=== PATIENT | male | born 1955 | race Caucasian/White ===

== ENCOUNTER 2022-05-15 10:44 | Emergency (ER) | payer MEDICARE, OTHER ==
[~2022-05-15] VITALS: Ht 188 cm; Wt 129.0 kg
[2022-05-15] MEDS ORDERED: SODIUM CHLORIDE 0.9% 1,000 ML IV ONE (13:30)
[2022-05-15] MEDS ORDERED: SODIUM CHLORIDE 0.9% 500 ML IVB ONE (13:30)
[2022-05-15 14:14] LABS: Urine Bacteria NONE SEEN /hpf (None Seen); Urine Blood Negative /uL (Negative); Urine Mucus FEW (None Seen); Urine Specific Gravity 1.012 (1.001-1.035); Urine WBC <1 /hpf (0 - 3)
[2022-05-15 14:21] LABS: Basophils # (auto) 0.1 10 ^3/uL (0-0.2); Eosinophils # (auto) 0.1 10 ^3/uL (0-0.8); Monocytes # (auto) 0.8 10 ^3/uL (0-1.3)
[2022-05-15 14:22] LABS: Basophils % (auto) 0.6 % (0.0-2.0); Eosinophils % (auto) 0.4 % (0.0-7.0); Hematocrit 50.7 % (41.0-53.0); Hemoglobin 16.6 g/dL (13.5-17.5); Lymphocytes # (auto) 1.7 10 ^3/uL (0.4-5.4); Lymphocytes % (auto) 12.6 % (10.0-50.0); Mean Corpuscular Hgb Conc. 32.6 g/dL (32.0-36.0); Mean Corpuscular Volume 85.8 fL (80.0-100.0); Monocytes % (auto) 5.9 % (0.0-12.0); Neutrophils # (auto) 10.9 10 ^3/uL (1.6-8.6); Neutrophils % (auto) 80.5 % (37.0-80.0); Red Blood Cells 5.91 10^6/uL (4.5-5.90); Red Cell Distribution Width 15.6 % (11.8-14.3); White Blood Cell 13.6 10^3/uL (4.4-10.8)
[2022-05-15 14:37] LABS: Albumin 3.8 g/dL (3.4-5.0); Calcium 8.9 mg/dL (8.5-10.1); Magnesium 2.7 mg/dL (1.6-2.6); Potassium 4.4 mmol/L (3.5-5.1)
[2022-05-15 14:42] LABS: BUN/Creatinine Ratio 12.8; Total Protein 6.9 g/dL (6.4-8.2)
[2022-05-15] MEDS ORDERED: IOHEXOL 300 MG/ML 100ML BOTTLE IJ ONE (15:13)
[2022-05-15] MEDS ORDERED: METO-281 PO (17:07)
[2022-05-15] MEDS ORDERED: NAP500T PO (17:07)
[2022-05-15] MEDS ORDERED: BISM262C44 PO (17:07)
[2022-05-15] MEDS ORDERED: TRAM50TA2 PO (17:07)
[2022-05-15 17:18] VITALS: BP 110/69
== END 2022-05-15 17:37 | disposition home or self-care (01) ==
LOC: ER 10:44
DX: K52.9 Noninfective gastroenteritis and colitis, unspecified (principal); M47.816 Spondylosis without myelopathy or radiculopathy, lumbar region; K86.2 Cyst of pancreas; E66.9 Obesity, unspecified; R07.89 Other chest pain; I11.0 Hypertensive heart disease with heart failure; I50.9 Heart failure, unspecified; E78.5 Hyperlipidemia, unspecified; Z68.35 Body mass index [BMI] 35.0-35.9, adult; Z90.49 Acquired absence of other specified parts of digestive tract; Z95.0 Presence of cardiac pacemaker; Z79.899 Other long term (current) drug therapy
CPT/HCPCS: 36415; 71046; 74177; 80053; 81001; 83690; 83735; 85025; 99285; Q9967

== ENCOUNTER 2022-09-09 18:56 | Emergency (ER) | payer MEDICARE, OTHER ==
[~2022-09-09] VITALS: Ht 188 cm; Wt 123.0 kg
[~2022-09-09 18:56] MED LIST: BISM262C44 PO; METO-281 PO; NAP500T PO; TRAM50TA2 PO
[2022-09-09 21:17] LABS: Basophils # (auto) 0 10 ^3/uL (0-0.2); Basophils % (auto) 0.7 % (0.0-2.0); Eosinophils # (auto) 0.1 10 ^3/uL (0-0.8); Eosinophils % (auto) 1.6 % (0.0-7.0); Hematocrit 38.2 % (41.0-53.0); Hemoglobin 12.7 g/dL (13.5-17.5); Lymphocytes # (auto) 0.8 10 ^3/uL (0.4-5.4); Lymphocytes % (auto) 11.1 % (10.0-50.0); Mean Corpuscular Hgb Conc. 33.3 g/dL (32.0-36.0); Mean Corpuscular Volume 87.1 fL (80.0-100.0); Monocytes # (auto) 0.6 10 ^3/uL (0-1.3); Monocytes % (auto) 8.1 % (0.0-12.0); Neutrophils # (auto) 5.4 10 ^3/uL (1.6-8.6); Neutrophils % (auto) 78.5 % (37.0-80.0); Nucleated Red Blood Cells % 0.1 %; Red Blood Cells 4.39 10^6/uL (4.5-5.90); Red Cell Distribution Width 14.5 % (11.8-14.3); White Blood Cell 6.9 10^3/uL (4.4-10.8)
[2022-09-09 21:30] LABS: Albumin 3.2 g/dL (3.4-5.0); BUN/Creatinine Ratio 10.5; Calcium 9.1 mg/dL (8.5-10.1)
[2022-09-09 21:33] LABS: Bilirubin, Total 1.2 mg/dL (0.2-1.0); Total Protein 6.1 g/dL (6.4-8.2)
[2022-09-09 21:37] LABS: INR 1.06 (0.9-1.15)
[2022-09-09] MEDS ORDERED: ceFAZolin 1GM/50ML 50 ML IV ONE (23:30)
[2022-09-10] MEDS ORDERED: IOHEXOL 350 MG/ML 100ML IJ ONE (00:21)
[2022-09-10 01:25] VITALS: BP 142/54
[2022-09-10] MEDS ORDERED: CEPH-510 PO (02:21)
== END 2022-09-10 02:07 | disposition left against medical advice (07) ==
LOC: ER 18:56
DX: L03.115 Cellulitis of right lower limb (principal); F41.9 Anxiety disorder, unspecified; G89.18 Other acute postprocedural pain; T81.40XA Infection following a procedure, unspecified, initial encounter; I50.9 Heart failure, unspecified; E78.5 Hyperlipidemia, unspecified; F17.220 Nicotine dependence, chewing tobacco, uncomplicated; I10 Essential (primary) hypertension; Z90.49 Acquired absence of other specified parts of digestive tract; Z98.890 Other specified postprocedural states; Z79.899 Other long term (current) drug therapy
CPT/HCPCS: 36415; 71045; 71275; 80053; 83605; 83880; 84484; 85025; 85379; 85610; 85730; 87040; 93005; 93971; 96365; 99285; J0690; Q9967

== ENCOUNTER 2022-10-13 08:17 | Inpatient (IN) | payer MEDICARE, OTHER ==
[~2022-10-13] VITALS: Ht 188 cm; Wt 125.0 kg
[~2022-10-13 08:17] MED LIST changes: +CEPH-510 PO
[2022-10-13 08:47] LABS: Basophils # (auto) 0 10 ^3/uL (0-0.2); Basophils % (auto) 0.8 % (0.0-2.0); Eosinophils # (auto) 0.1 10 ^3/uL (0-0.8); Eosinophils % (auto) 1.2 % (0.0-7.0); Hematocrit 44.4 % (41.0-53.0); Hemoglobin 14.8 g/dL (13.5-17.5); Lymphocytes # (auto) 0.9 10 ^3/uL (0.4-5.4); Lymphocytes % (auto) 17.8 % (10.0-50.0); Mean Corpuscular Hemoglobin 28.6 pg (28.0-32.0); Mean Corpuscular Hgb Conc. 33.3 g/dL (32.0-36.0); Monocytes # (auto) 0.5 10 ^3/uL (0-1.3); Monocytes % (auto) 9.1 % (0.0-12.0); Neutrophils # (auto) 3.6 10 ^3/uL (1.6-8.6); Neutrophils % (auto) 71.1 % (37.0-80.0); Nucleated Red Blood Cells % 0.1 %; Red Blood Cells 5.16 10^6/uL (4.5-5.90); Red Cell Distribution Width 15.1 % (11.8-14.3); White Blood Cell 5.1 10^3/uL (4.4-10.8)
[2022-10-13 09:01] LABS: Albumin 3.8 g/dL (3.4-5.0); Calcium 8.6 mg/dL (8.5-10.1); Potassium 3.7 mmol/L (3.5-5.1)
[2022-10-13 09:06] LABS: BUN/Creatinine Ratio 14.6; Bilirubin, Total 0.7 mg/dL (0.2-1.0); Total Protein 6.5 g/dL (6.4-8.2)
[2022-10-13 12:04] LABS: Urine Bacteria NONE SEEN /hpf (None Seen); Urine Blood Negative /uL (Negative); Urine Mucus FEW (None Seen); Urine Specific Gravity 1.015 (1.001-1.035); Urine WBC <1 /hpf (0 - 3)
[2022-10-13] MEDS ORDERED: NITROGLYCERIN 0.4 MG SL TAB SL PRN (14:00)
[2022-10-13] MEDS ORDERED: MORPHINE SULFATE INJ 2 MG/ml SYRG IV PRN (14:00)
[2022-10-13] MEDS ORDERED: ACETAMINOPHEN 325 MG TAB PO PRN (14:00)
[2022-10-13] MEDS ORDERED: PANTOPRAZOLE 40 MG/10 ML VIAL INJ IV ONE (14:15)
[2022-10-13 14:22] LABS: Cholesterol 205 mg/dL (< 200); Triglycerides 236 mg/dL (< 150)
[2022-10-13 14:26] LABS: HDL Cholesterol 23 mg/dL (40-59); LDL Cholesterol 145 mg/dL (< 100)
[2022-10-14 06:28] LABS: Basophils # (auto) 0 10 ^3/uL (0-0.2); Basophils % (auto) 0.8 % (0.0-2.0); Eosinophils # (auto) 0.1 10 ^3/uL (0-0.8); Eosinophils % (auto) 1.3 % (0.0-7.0); Hematocrit 40.6 % (41.0-53.0); Hemoglobin 13.2 g/dL (13.5-17.5); Lymphocytes # (auto) 1.1 10 ^3/uL (0.4-5.4); Lymphocytes % (auto) 21.3 % (10.0-50.0); Mean Corpuscular Hgb Conc. 32.5 g/dL (32.0-36.0); Mean Corpuscular Volume 86.4 fL (80.0-100.0); Monocytes # (auto) 0.5 10 ^3/uL (0-1.3); Monocytes % (auto) 8.6 % (0.0-12.0); Neutrophils # (auto) 3.6 10 ^3/uL (1.6-8.6); Nucleated Red Blood Cells % 0.1 %; Red Cell Distribution Width 15.3 % (11.8-14.3); White Blood Cell 5.3 10^3/uL (4.4-10.8)
[2022-10-14 06:43] LABS: Potassium 3.6 mmol/L (3.5-5.1)
[2022-10-14 07:00] LABS: Albumin 3.3 g/dL (3.4-5.0); BUN/Creatinine Ratio 16.9; Bilirubin, Total 0.7 mg/dL (0.2-1.0); Calcium 8.4 mg/dL (8.5-10.1); Total Protein 5.9 g/dL (6.4-8.2)
[2022-10-14 09:00] VITALS: BP 136/65
[2022-10-14] MEDS ORDERED: ENOXAPARIN SOD 40 MG/0.4 ML SYRINGE SC SCH (10:00)
[2022-10-14] MEDS ORDERED: ZOLPIDEM TARTRATE 5 MG TAB PO PRN (10:15)
[2022-10-14 11:44] VITALS: BP 136/65
[2022-10-14] MEDS: PANTOPRAZOLE 40 MG/10 ML VIAL INJ IV SCH (11:54)
[2022-10-14] MEDS ORDERED: SACU1TAB4 PO (12:09)
[2022-10-14] MEDS ORDERED: HYDR-4798 PO (12:09)
[2022-10-14] MEDS ORDERED: MET50T GT (12:09)
[2022-10-14] MEDS ORDERED: POTA10TA51 PO (12:09)
[2022-10-14] MEDS ORDERED: APIX5TAB PO (12:09)
[2022-10-14] MEDS ORDERED: AMIO200T33 PO (12:09)
[2022-10-14] MEDS ORDERED: TAMS0.4C36 PO (12:09)
[2022-10-14] MEDS ORDERED: FURO40TA4 PO (12:09)
[2022-10-14] MEDS: HYDROcodone-ACET 10/325MG TAB PO PRN ×2 (14:56→22:18)
[2022-10-14 17:00] VITALS: BP 133/52
[2022-10-14] MEDS: FUROSEMIDE 20 MG TAB PO SCH (18:55)
[2022-10-14 22:00] VITALS: BP 133/71
[2022-10-14] MEDS ORDERED: SACUBITRIL-VALSARTAN 24mg/26mg TAB PO SCH (22:00)
[2022-10-14] MEDS: DOCUSATE SOD 100 MG CAP PO SCH (22:17)
[2022-10-14] MEDS: APIXABAN 5 MG TAB PO SCH (22:18)
[2022-10-14] MEDS: ENTRESTO PO SCH (22:27)
[2022-10-15 05:00] VITALS: BP_SYST 123; BP_SYST 132; BP_SYST 140; BP_DIAS 65; BP_DIAS 67
[2022-10-15] MEDS: FUROSEMIDE 20 MG TAB PO SCH (06:22)
[2022-10-15 09:00] VITALS: BP 120/65
[2022-10-15] MEDS ORDERED: AMIODARONE HCL 200 MG TAB PO SCH (10:00)
[2022-10-15] MEDS ORDERED: POTASSIUM CHL 20 Meq TABLET PO SCH (10:00)
[2022-10-15] MEDS: ENTRESTO PO SCH (10:08)
[2022-10-15] MEDS: PANTOPRAZOLE 40 MG/10 ML VIAL INJ IV SCH (10:08)
[2022-10-15] MEDS: DOCUSATE SOD 100 MG CAP PO SCH (10:09)
[2022-10-15] MEDS: APIXABAN 5 MG TAB PO SCH (10:09)
[2022-10-15] MEDS: HYDROcodone-ACET 10/325MG TAB PO PRN (10:20)
[2022-10-15 13:00] VITALS: BP 135/60
[2022-10-15 16:40] VITALS: BP 135/60
[2022-10-15] MEDS ORDERED: FUROSEMIDE 40 MG TAB PO SCH (18:00)
== END 2022-10-15 17:41 | disposition home or self-care (01) | DRG 309 ==
LOC: EDBD 08:17 → ER 08:17 → TELE 13:54 → TELE-CENTR 10-14 07:32
PROVIDERS: ADMIT Nurse Practitioner Family; ATTEND Internal Medicine Geriatric Medicine
DX: I49.5 Sick sinus syndrome (principal); D68.59 Other primary thrombophilia; I48.20 Chronic atrial fibrillation, unspecified; Z20.822 Contact with and (suspected) exposure to COVID-19; E66.01 Morbid (severe) obesity due to excess calories; Z68.35 Body mass index [BMI] 35.0-35.9, adult; E78.5 Hyperlipidemia, unspecified; E87.6 Hypokalemia; F17.200 Nicotine dependence, unspecified, uncomplicated; H81.10 Benign paroxysmal vertigo, unspecified ear; I11.0 Hypertensive heart disease with heart failure; I50.9 Heart failure, unspecified; Z83.3 Family history of diabetes mellitus; Z86.711 Personal history of pulmonary embolism; Z95.0 Presence of cardiac pacemaker
CPT/HCPCS: 36415; 70450; 71045; 80053; 80061; 81001; 83036; 84443; 84484; 85025; 87426; 93005; 93886; 95819; 96374; C9113; G0378

== ENCOUNTER 2023-02-11 11:15 | Emergency (ER) | payer MEDICARE, OTHER ==
[~2023-02-11] VITALS: Ht 188 cm; Wt 108.2 kg
[~2023-02-11 11:15] MED LIST changes: +AMIO200T33 PO; +APIX5TAB PO; +FURO40TA4 PO; +HYDR-4798 PO; +MET50T GT; +POTA10TA51 PO; +SACU1TAB4 PO; +TAMS0.4C36 PO
[2023-02-11 11:41] VITALS: BP 114/59
[2023-02-11 12:31] LABS: Urine Bacteria NONE SEEN /hpf (None Seen); Urine Blood Negative /uL (Negative); Urine Mucus FEW (None Seen); Urine Specific Gravity 1.018 (1.001-1.035); Urine WBC <1 /hpf (0 - 3)
[2023-02-11 12:54] LABS: Basophils # (auto) 0.1 10 ^3/uL (0-0.2); Basophils % (auto) 0.8 % (0.0-2.0); Eosinophils # (auto) 0 10 ^3/uL (0-0.8); Eosinophils % (auto) 0.5 % (0.0-7.0); Hematocrit 44.2 % (41.0-53.0); Hemoglobin 14.9 g/dL (13.5-17.5); Lymphocytes # (auto) 1.1 10 ^3/uL (0.4-5.4); Lymphocytes % (auto) 15.9 % (10.0-50.0); Mean Corpuscular Hemoglobin 29.5 pg (28.0-32.0); Mean Corpuscular Hgb Conc. 33.8 g/dL (32.0-36.0); Mean Corpuscular Volume 87.3 fL (80.0-100.0); Monocytes # (auto) 0.5 10 ^3/uL (0-1.3); Monocytes % (auto) 7.9 % (0.0-12.0); Neutrophils % (auto) 74.9 % (37.0-80.0); Nucleated Red Blood Cells % 0.1 %; Red Blood Cells 5.06 10^6/uL (4.5-5.90); Red Cell Distribution Width 16.1 % (11.8-14.3); White Blood Cell 6.7 10^3/uL (4.4-10.8)
[2023-02-11 13:08] LABS: Calcium 9.1 mg/dL (8.5-10.1); Potassium 3.9 mmol/L (3.5-5.1)
[2023-02-11 13:11] LABS: Bilirubin, Total 0.8 mg/dL (0.2-1.0); Total Protein 6.8 g/dL (6.4-8.2)
[2023-02-11] MEDS ORDERED: HYDROcodone-ACET 10/325MG TAB PO ONE (14:00)
[2023-02-11] MEDS ORDERED: DICY10CA PO (14:31)
[2023-02-11] MEDS ORDERED: LACT10SO70 PO (14:31)
== END 2023-02-11 14:33 | disposition home or self-care (01) ==
LOC: ER 11:15
DX: K59.00 Constipation, unspecified (principal); K86.2 Cyst of pancreas; R91.1 Solitary pulmonary nodule; F17.220 Nicotine dependence, chewing tobacco, uncomplicated; I11.0 Hypertensive heart disease with heart failure; I50.9 Heart failure, unspecified; E78.5 Hyperlipidemia, unspecified; Z86.711 Personal history of pulmonary embolism; Z90.89 Acquired absence of other organs; Z95.0 Presence of cardiac pacemaker
CPT/HCPCS: 36415; 74176; 80053; 81001; 83605; 83690; 83880; 85025

== ENCOUNTER 2024-03-22 17:34 | Inpatient (IN) | payer BC, MEDICARE, OTHER ==
[~2024-03-22] VITALS: Ht 182.9 cm; Wt 114.0 kg
[~2024-03-22 17:34] MED LIST changes: +CEPH250C PO; +DICY10CA PO; +LACT10SO70 PO; +METO-158 PO; +POTA-36 PO; -POTA10TA51 PO; +ROSU20TA14 PO; +ROSU20TA56 PO; +TAMS-35 PO
[2024-03-22 19:11] LABS: Basophils # (auto) 0.1 10 ^3/uL (0-0.2); Eosinophils # (auto) 0.1 10 ^3/uL (0-0.8); Eosinophils % (auto) 0.9 % (0.0-7.0); Hematocrit 47.6 % (41.0-53.0); Lymphocytes # (auto) 1.5 10 ^3/uL (0.4-5.4); Lymphocytes % (auto) 20.6 % (10.0-50.0); Mean Corpuscular Hgb Conc. 33.5 g/dL (32.0-36.0); Mean Corpuscular Volume 89.4 fL (80.0-100.0); Monocytes # (auto) 0.6 10 ^3/uL (0-1.3); Neutrophils # (auto) 5.1 10 ^3/uL (1.6-8.6); Neutrophils % (auto) 69.5 % (37.0-80.0); Nucleated Red Blood Cells % 0.1 %; Red Blood Cells 5.33 10^6/uL (4.5-5.90); White Blood Cell 7.4 10^3/uL (4.4-10.8)
[2024-03-22 19:33] LABS: Alanine Aminotransferase 14 U/L (7-40); Albumin 4.1 g/dL (3.2-4.8); Alkaline Phosphatase 56 U/L (46-116); Anion Gap 4 (5-15); Aspartate Aminotransferase 12 U/L (13-40); BUN/Creatinine Ratio 12.1 (10.0-20.0); Bilirubin, Total 0.4 mg/dL (0.2-1.0); Blood Urea Nitrogen 14 mg/dL (9-23); Calcium 9.2 mg/dL (8.5-10.1); Carbon Dioxide 25 mmol/L (20-30); Chloride 109 mmol/L (98-107); Glucose 105 mg/dL (74-106); Potassium 4.2 mmol/L (3.5-5.1); Sodium 138 mmol/L (136-145); Total Protein 6.3 g/dL (5.7-8.2)
[2024-03-22 20:38] LABS: Urine Bacteria FEW /hpf (None Seen); Urine Blood Negative /uL (Negative); Urine Clarity Clear (Clear); Urine Color Light-Yellow (Yellow); Urine Protein, UAD Negative (Negative); Urine Specific Gravity 1.016 (1.001-1.035); Urine Urobilinogen Normal (Negative); Urine WBC 63 /hpf (0 - 3)
[2024-03-22] MEDS: ERTAPENEM SOD INJ 1 GM in SODIUM CHL 0.9% 50 ML IV ONE (22:36)
[2024-03-22] MEDS: MORPHINE SULFATE 4 MG/ML SYR/VIAL IV ONE (22:58)
[2024-03-22] MEDS: ONDANSETRON HCL 4 MG/2 ML VIAL IV ONE (22:59)
[2024-03-23] MEDS ORDERED: ACETAMINOPHEN 325 MG TAB PO PRN
[2024-03-23] MEDS ORDERED: ONDANSETRON HCL 4 MG/2 ML VIAL IV PRN
[2024-03-23] MEDS ORDERED: NITROGLYCERIN 0.4 MG SL TAB SL PRN
[2024-03-23] MEDS ORDERED: MORPHINE SULFATE INJ 2 MG/ml SYRG IV PRN
[2024-03-23] MEDS: SODIUM CHLORIDE 0.9% 1,000 ML IV SCH (03:32)
[2024-03-23] MEDS: MORPHINE SULFATE INJ 2 MG/ml SYRG IV PRN (03:50)
[2024-03-23 05:01] LABS: Basophils # (auto) 0.1 10 ^3/uL (0-0.2); Eosinophils # (auto) 0.1 10 ^3/uL (0-0.8); Eosinophils % (auto) 1.5 % (0.0-7.0); Hematocrit 45.2 % (41.0-53.0); Hemoglobin 15.1 g/dL (13.5-17.5); Lymphocytes # (auto) 1.8 10 ^3/uL (0.4-5.4); Lymphocytes % (auto) 21.1 % (10.0-50.0); Mean Corpuscular Hemoglobin 29.8 pg (28.0-32.0); Mean Corpuscular Hgb Conc. 33.5 g/dL (32.0-36.0); Mean Corpuscular Volume 88.8 fL (80.0-100.0); Monocytes # (auto) 0.7 10 ^3/uL (0-1.3); Monocytes % (auto) 7.8 % (0.0-12.0); Neutrophils # (auto) 5.8 10 ^3/uL (1.6-8.6); Neutrophils % (auto) 68.6 % (37.0-80.0); Nucleated Red Blood Cells % 0.3 %; Red Blood Cells 5.08 10^6/uL (4.5-5.90); Red Cell Distribution Width 15.2 % (11.8-14.3); White Blood Cell 8.4 10^3/uL (4.4-10.8)
[2024-03-23 05:23] LABS: Alanine Aminotransferase 14 U/L (7-40); Albumin 3.9 g/dL (3.2-4.8); Alkaline Phosphatase 50 U/L (46-116); Anion Gap 4 (5-15); Aspartate Aminotransferase 10 U/L (13-40); BUN/Creatinine Ratio 13.3 (10.0-20.0); Bilirubin, Total 0.4 mg/dL (0.2-1.0); Blood Urea Nitrogen 15 mg/dL (9-23); Calcium 9.7 mg/dL (8.7-10.4); Carbon Dioxide 27 mmol/L (20-30); Chloride 109 mmol/L (98-107); Glucose 115 mg/dL (74-106); Potassium 4.1 mmol/L (3.5-5.1); Sodium 140 mmol/L (136-145)
[2024-03-23 06:00] VITALS: BP 117/50; PULSE 58; TEMP 97.8; O2SAT 95
[2024-03-23 06:16] VITALS: BP 117/50; PULSE 58; RESP 20; TEMP 97.8; O2SAT 95
[2024-03-23] MEDS: HYDROcodone-ACET 5/325MG TAB PO PRN (06:54)
[2024-03-23] MEDS ORDERED: ZOLP10TA6 PO (06:57)
[2024-03-23 09:00] VITALS: BP 116/54; PULSE 60; RESP 20; TEMP 97.6; O2SAT 93
[2024-03-23] MEDS: ERTAPENEM SOD INJ 1 GM in SODIUM CHL 0.9% 50 ML IV SCH (10:55)
[2024-03-23] MEDS: ZOLPIDEM TARTRATE 5 MG TAB PO ONE (13:30)
[2024-03-23 14:52] VITALS: BP 111/53; PULSE 53; RESP 18; TEMP 97.6; O2SAT 94
[2024-03-23 21:00] VITALS: BP 112/48; PULSE 55; RESP 18; TEMP 97.5; O2SAT 96
[2024-03-23] MEDS: SACUBITRIL-VALSARTAN 24mg/26mg TAB PO SCH (21:43)
[2024-03-23] MEDS ORDERED: ZOLPIDEM TARTRATE 5 MG TAB PO PRN (22:00)
[2024-03-23] MEDS: AMIODARONE HCL 200 MG TAB PO SCH (22:04)
[2024-03-24 01:00] VITALS: BP_SYST 123; BP_SYST 137; BP_DIAS 60; BP_DIAS 67; PULSE 55; PULSE 84; RESP 18; TEMP 97.5; TEMP 98.3; O2SAT 96; O2SAT 97
[2024-03-24 09:00] VITALS: BP_SYST 120; BP_SYST 163; BP_DIAS 58; BP_DIAS 62; PULSE 56; PULSE 85; RESP 14; RESP 16; TEMP 98; TEMP 98.2; O2SAT 95; O2SAT 96
[2024-03-24] MEDS ORDERED: AMIODARONE HCL 200 MG TAB PO SCH (10:00)
[2024-03-24] MEDS: DOCUSATE SOD 100 MG CAP PO PRN (12:29)
[2024-03-24 13:00] VITALS: BP 163/58; PULSE 60; RESP 18; TEMP 98; O2SAT 95
[2024-03-24 17:00] VITALS: BP 130/65; PULSE 60; RESP 16; TEMP 97.8; O2SAT 98
[2024-03-24] MEDS ORDERED: TAMSULOSIN HYDROCHLORIDE 0.4 MG CAP PO SCH (18:00)
[2024-03-24 21:00] VITALS: BP 123/59; PULSE 56; RESP 18; TEMP 98.1; O2SAT 95
[2024-03-24] MEDS: HYDROcodone-ACET 10/325MG TAB PO PRN (21:13)
[2024-03-24] MEDS: SACUBITRIL-VALSARTAN 24mg/26mg TAB PO SCH (21:13)
[2024-03-24] MEDS ORDERED: SACUBITRIL-VALSARTAN 24mg/26mg TAB PO SCH (22:00)
[2024-03-25] VITALS (8 sets, daily range): BP systolic 125–138; BP diastolic 57–69; PULSE 54–69; RESP 16–20; TEMP 97.6–98.7; O2SAT 69–98
[2024-03-25] MEDS: TAMSULOSIN HYDROCHLORIDE 0.4 MG CAP PO SCH (09:31)
[2024-03-26 05:00] VITALS: BP 122/53; PULSE 59; RESP 20; TEMP 97.2; O2SAT 94
[2024-03-26 08:50] VITALS: BP 137/65; PULSE 56; RESP 21; TEMP 97.4; O2SAT 92
[2024-03-26] MEDS ORDERED: OXYC-963 PO (10:55)
[2024-03-26 13:06] VITALS: BP 141/65; PULSE 69; RESP 20; TEMP 97.5; O2SAT 93
== END 2024-03-26 16:29 | disposition home or self-care (01) | DRG 690 ==
LOC: ER 17:40 → OVERFLOW 03-23 00:04 → WEST WING 03-23 05:50
PROVIDERS: ADMIT Nurse Practitioner Family; ATTEND Nurse Practitioner Acute Care
PROC: 05HD33Z Insertion of Infusion Device into Right Cephalic Vein, Percutaneous Approach (ICD-10-PCS; principal; 2024-03-25)
PROC: B54MZZA Ultrasonography of Right Upper Extremity Veins, Guidance (ICD-10-PCS; 2024-03-25)
DX: N30.90 Cystitis, unspecified without hematuria (principal); I50.22 Chronic systolic (congestive) heart failure; Z16.12 Extended spectrum beta lactamase (ESBL) resistance; B96.20 Unspecified Escherichia coli [E. coli] as the cause of diseases classified elsewhere; I11.0 Hypertensive heart disease with heart failure; E78.00 Pure hypercholesterolemia, unspecified; I25.10 Atherosclerotic heart disease of native coronary artery without angina pectoris; I48.91 Unspecified atrial fibrillation; N40.0 Benign prostatic hyperplasia without lower urinary tract symptoms; F17.200 Nicotine dependence, unspecified, uncomplicated; M19.012 Primary osteoarthritis, left shoulder; Z86.711 Personal history of pulmonary embolism; Z90.49 Acquired absence of other specified parts of digestive tract; Z95.0 Presence of cardiac pacemaker
CPT/HCPCS: 36415; 73020; 73200; 74176; 80053; 81001; 83605; 85025; 87040; 87086; 87088; 87186; G0378; J1335; J2405